=== PATIENT | female | born 1965 | race Caucasian/White ===

== ENCOUNTER 2024-05-22 00:10 | Emergency (ER) | payer BC, SELFPAY ==
[2024-05-22 00:54] VITALS: BP 177/108; PULSE 89; RESP 16; TEMP 36.8; O2SAT 97
--- NOTE | 2024-05-22 01:11 | ED.GENADULT ---
HPI - General Adult General Chief complaint: Fall/Minor Trauma Stated complaint: fall, head lac Time Seen by Provider: 05/22/24 00:19 History of Present Illness HPI narrative: about 1 hour ago was walking down the steps and tried to swat at a fly causing her to fall, she hit the back of her head and lower back. no LOC, no blood thinners. reports back pain 2/10 and a lac in the back of head, bleeding has stopped. 58-year-old woman presenting to the emergency department after slipping or falling back on some stairs while trying to swat at a fly. She did strike the back of her head. There was no loss of consciousness. She is not nauseated, has not been vomiting. She is not anticoagulated. Mild pain in the back of her head. Managed to control the bleeding. She is also having some pain she says at the top of her coccyx but able to ambulate. Thought she should be evaluated; checked out. This occurred about an hour prior to arrival in the emergency department. Related Data Home Medications ?Medication ?Instructions ?Recorded ?Confirmed hydrochlorothiazide 25 mg tablet 25 mg PO DAILY 05/22/24 05/22/24 Allergies Allergy/AdvReac Type Severity Reaction Status Date / Time lamolin Allergy Uncoded 05/22/24 01:01 Review of Systems Status of ROS: Reports: 6 or more systems reviewed and unremarkable except as noted in History and below [facility] Social History Smoking Status: Never smoker Do you use any of these nicotine containing products: None Second hand tobacco smoke exposure: No How often do you have a drink containing alcohol: monthly or less AUDIT-C Alcohol total score: 1 Non-prescribed substance use: denies use Exam Narrative: Exam Narrative: Very pleasant. Good energy. Transitioning without notable difficulty. Cranial nerves 2-12 intact. She is moving all extremities without difficulty. Good strength. Pupils are equal and briskly reactive. No fluid at external ear canals. Neck is supple nontender. Back nontender. If there is some soreness to palpation at the base of the sacrum/initiation of coccyx. Not terribly tender here. I do not see associated swelling. Examining scalp further -- at the upper central occiput, there is light blood and subtle break in tissue/laceration over a cm length. Fingertip sized defect in the subcutaneous tissue is more palpable. oozes a little blood with manipulation. No apparent bony defect. Const: Vital Signs, click to edit/add: Vital Signs - 24 hr 05/22/24 00:54 Temperature 98.3 F Pulse Rate [Pulse Oximeter] 89 Respiratory Rate 16 Blood Pressure [Ri ght Upper Arm] 177/108 H Pulse Oximetry 97 Oxygen Delivery Me thod Room Air Documenting provider has reviewed patient's vital signs: yes Course Vital Signs Vital signs: Initial Vital Signs Temperature 98.3 F 05/22/24 00:54 Temperature Source Temporal Artery Scan 05/22/24 00:54 Pulse Rate 89 05/22/24 00:54 Respiratory Rate 16 05/22/24 00:54 Blood Pressure 177/108 H 05/22/24 00:54 Blood Pressure Mean 131 H 05/22/24 00:54 Blood Pressure Position Supine 05/22/24 00:54 Pulse Oximetry 97 05/22/24 00:54 Oxygen Delivery Method Room Air 05/22/24 00:54 Vital Signs Temperature 98.3 F 05/22/24 00:54 Pulse Rate 89 05/22/24 00:54 Respiratory Rate 16 05/22/24 00:54 Blood Pressure 177/108 H 05/22/24 00:54 Pulse Oximetry 97 05/22/24 00:54 Oxygen Delivery Method Room Air 05/22/24 00:54 Temperature 98.3 F 05/22/24 00:54 Pulse Rate 89 05/22/24 00:54 Respiratory Rate 16 05/22/24 00:54 Blood Pressure 177/108 H 05/22/24 00:54 Pulse Oximetry 97 05/22/24 00:54 Oxygen Delivery Method Room Air 05/22/24 00:54 Medical Decision Making MDM Narrative Medical decision making narrative: Generally well. I think unlikely that has significant head injury. Would not recommend imaging. No notable neck injury either. We did discuss repairing this is a scalp laceration. She does have long hair and might be amenable simply to a temporary hair tie. Other area of injury in the sacrum/coccygeal area, I think is more likely a contusion than any fracture. Scalp wound had already been cleaned. Aided by Ms. Suarez, I bring together some strands of hair in a not. This does result in very good wound approximation and I think control of bleeding. Dermabond placed to hold type. Appears to be holding well. See patient discharge plan for further discussion Medical Records Medical records reviewed: Yes I reviewed the patient's medical records Discharge Plan Discharge Clinical Impression: Closed head injury, Contusion of sacrum Patient Disposition: Home, Self-Care Condition: Improved Additional Instructions: I would ice your low back/sacrum/coccygeal area 2 - 3 times daily over the next few days. This knot I'm hoping will hold long enough to allow the skin to heal. I presume it should heal pretty well if it can stay in place for least 3 days. I would not soak your head other than maybe a quick wash over the next 5 days. Watch for marked increase in headache, discoordination, repeated vomiting, unusual somnolence. Signs or symptoms of a concussion might be nausea or headache upon exertion which can also be an indication to back off that level of activity and reassess in a week.? Concussion can also be represented by smoldering nausea or smoldering headache, difficulty with concentration, mood lability, general somnolence, sense of persistent fog or dizziness/lightheadedness.? If these symptoms are becoming apparent and continuing beyond 7-10 days, be re-evaluated for further recommendations. Do consider that vacuum silver cleaner option Prescriptions: No Action hydrochlorothiazide 25 mg tablet 25 mg PO DAILY Follow Up/Referrals: Sarah Webster MD [Staff Physician] - Stand Alone Forms: [employer] Info Instructions
--- OUTSIDE RECORDS SUMMARY | 2024-05-22 01:37 | XMS_ITS | Data Portability ---
Author Organization [place] - .[facility], [facility] Address [address] [place] [address] Assessment No assessment recorded. Plan of Treatment Reminders Order Date Submit Date Provider Last Modified By Organization Details Last Modified Time Details Appointments None recorded. Lab culture, urine 2022 023 [facility], [address] [place] [address], [address], 16:06:15 urinalysis , dipstick 2022 023 [email or web address], [address] [place], [address], 16:03:18 Referral None recorded. Procedures None recorded. Surgeries None recorded. Imaging None recorded. Medication Orders Macrobid 100 mg capsule 2022 023 [id number], [address] [place], [address], 20:15:48 Macrobid 100 mg capsule 2022 023 [facility]armacy #[id number], [address] [place], [address], 16:19:47 Patient TargetsNo targets recorded. Patient Instructions Encounter Date Encounter Id Patient Instructions Last Modified By Organization Details Last Modified Time 03/18/2023 [id number] A healthy lifestyle: care instructions [email or web address] Not available 03/18/2023 16:00:55 Thank you for visiting [facility]. We may be calling you to review your lab results or schedule a follow up appointment. The call will be through an automated system which asks you to press a lozada to speak with one of our agents. Please be on the lookout for this call and listen to the message in its entirety. You may also view your lab results using the FaceRig sanjay, available in the Sanjay Store and [employer] Play. First-time sanjay users will need to create an account; please note you? ll need to select a login and password for the sanjay versus just using your patient portal login. Your lab results will be posted to the FaceRig sanjay as soon as they? re available. If you have any questions regarding your visit, our Aftercare department can be reached at [phone]. Our hours are Thursday ? Thursday from 8 am ? 11 pm or Thursday/Thursday from 9a ? 8p. UTI in Women Your Care Instructions A urinary tract infection, or UTI, is a general term for an infection anywhere between the kidneys and the urethra (where urine comes out). Most UTIs are bladder infections. They often cause pain or burning when you urinate. UTIs are caused by bacteria and can be cured with antibiotics. Be sure to complete your treatment so that the infection goes away. Follow-up care is a lozada part of your treatment and safety. Be sure to make and go to all appointments, and call your doctor if you are having problems. It's also a good idea to know your test results and keep a list of the medicines you take. How can you care for yourself at home? Take your antibiotics as directed. Do not stop taking them just because you feel better. You need to take the full course of antibiotics. Drink extra water and other fluids for the next day or two. This may help wash out the bacteria that are causing the infection. (If you have kidney, heart, or liver disease and have to limit fluids, talk with your doctor before you increase your fluid intake.) Avoid drinks that are carbonated or have caffeine. They can irritate the bladder. Urinate often. Try to empty your bladder each time. To relieve pain, take a hot bath or lay a heating pad set on low over your lower belly or genital area. Never go to sleep with a heating pad in place. To prevent UTIs Drink plenty of water each day. This helps you urinate often, which clears bacteria from your system. (If you have kidney, heart, or liver disease and have to limit fluids, talk with your doctor before you increase your fluid intake.) Urinate when you need to. Urinate right after you have sex. Change sanitary pads often. Avoid douches, bubble baths, feminine hygiene sprays, and other feminine hygiene products that have deodorants. After going to the bathroom, wipe from front to back. When should you call for help? Call your doctor now or seek immediate medical care if: Symptoms such as fever, chills, nausea, or vomiting get worse or appear for the first time. You have new pain in your back just below your rib cage. This is called flank pain. There is new blood or pus in your urine. You have any problems with your antibiotic medicine. Watch closely for changes in your health, and be sure to contact your doctor if: You are not getting better after taking an antibiotic for 2 days. Your symptoms go away but then come back. [email or web address] Not available 03/18/2023 16:03:32 Reason for Referral None Reported. Results Created Date Observation Date Name Description Value Unit Range Abnormal Flag Note LastModifiedBy Organization Detail LastModifiedTime 03/18/2003/18/2023 CULTU RE URINE results Attac hment Not Available [facility] [address] [place], [address], 03/20/2023 16:06:15 03/18/20 23 03/20/2023 CULTU RE URINE final MICROB IOLOGY RESULT S Cultu re Urine Final Sourc e: Repor t Date/ Time: 03/20 4:05P M Colle ction Date/ Time: 03/18 4:19P M 1630 Clini heber Infor matio n Type of Patie nt Non-P regna nt Femal e Sourc e of urine cultu re VOIDE D/MARYANN AN CATCH Penic illin Aller gy? N Cultu re Obser vatio n No growt h. Not Available [facility] [address], [place], [address], 03/20/2023 16:06:15 03/18/20 23 03/18/2023 urina lysis , dipst ick Unknown Analyte Neg Not Available [facility] [place] [id number] [place], [address], 03/18/2023 15:55:33 03/18/20 23 03/18/2023 urina lysis , dipst ick Unknown Analyte Norm Not Available [facility] [address], [address], 03/18/2023 15:55:33 03/18/20 23 03/18/2023 urina lysis , dipst ick Unknown Analyte Neg Not Available [facility] [address], [address], 03/18/2023 15:55:33 03/18/20 23 03/18/2023 urina lysis , dipst ick Unknown Analyte Neg Not Available [facility] [address], [address], 03/18/2023 15:55:33 03/18/20 23 03/18/2023 urina lysis , dipst ick Unknown Analyte negati ve Not Available [facility], [address], 03/18/2023 15:55:33 03/18/20 23 03/18/2023 urina lysis , dipst ick Unknown Analyte Neg Not Available [facility] [address], [address], 03/18/2023 15:55:33 03/18/20 23 03/18/2023 urina lysis , dipst ick Unknown Analyte Neg Not Available [facility] [address], [address], 03/18/2023 15:55:33 03/18/20 23 03/18/2023 urina lysis , dipst ick Unknown Analyte 5 Not Available [facility] [address], [address], 03/18/2023 15:55:33 03/18/20 23 03/18/2023 urina lysis , dipst ick Unknown Analyte 1.010 Not Available [address] [place], [address], 03/18/2023 15:55:33 03/18/20 23 03/18/2023 urina lysis , dipst ick Unknown Analyte 500 Not Available [id number] [place], [address], 03/18/2023 15:55:33 Result Notes None recorded. Problems No Known Problems Medical Equipment None Reported. Allergies No known drug allergies Medications Name Sig Start Date Stop Date Status Note LastModified by Organization Details LastModified Time Macrobid 100 mg capsule Take 1 capsule now in office- for 1 day 2022 active Not Available Not Available Not Avai lable tamoxifen active Not Available Not Inna ilable Not Available hydrochlorothia zide active Not Available Not Available Not Available Vitals Date Recorded Respiratory rate Provider Name a nd Address Organization Details Last Updated DateTime 03/18/2023 16 /min Mark IFELD - .[facility] 03/18/2023 15:50:34 Date Recorded Oxygen saturation Oxygen saturation in Arterial blood by Pulse oximetry Heart rate Body temperature Systolic blood pressure Diastolic blood pressure Provider Name and Address Organization Details Last Updated DateTime 3 98 % 98 % 80 /min 97.4 [degF] 121 mm[Hg] 82 mm[Hg] Ebony FIELD - .[facility] 3 16:02:26 Social History None recorded. Functional Status None recorded. Mental Status None recorded. Family History Nothing Reported. Medical History No medical history recorded. Gynecological HistoryNo gynecological history recorded. Obstetrics History GPAL:G 0 P 0 0 0 0 Past Encounters Encounter ID Performer Location Encounter Start Date Encounter Closed Date Diagnosis/Indication Diagnosis SNOMED-CT Code Diagnosis ICD10 Code [id number] Dalton Kowalski DO [facility] t [address] [place] [address] 1 03/18/2023 15:45:36 03/18/2023 16:01:30 Dysuria 38908028 R30.0 Acute urin myrtle tract infection 574969984 N39.0 Health Concerns Section Related Observation LastModified by Organization Detai ls LastModified Time None Recorded Concern Status LastModified by Organization Details LastModified Time None Recorded Advance Directives Directive None Recorded Payers Encounter Date Sequence Insurance Name Policy Number Policy Garcia Covered Member ID Garcia Member ID Guarantor Name 03/18/2023 1 [place] [facility] [place] [place] [id number] Elizabeth Suarez [id number] Elizabeth Suarez Notes Date Note Type Note Provider Name and Address Organization Details Recorded Time 03/18/2023 text/html HPI Notes: Dysur ia - cmd Reported by patient. Patient presents with: Dysuria which began 2-3 days ago Pertinent findings: No urinary urgency; No hematuria; No history of recurrent UTI; No fever; No chills; No nausea; No vomiting; No abdominal pain; No back pain; No dizziness; No lightheadedness; No genital pain; No genital discharge; No recent potential STD exposure; (+) urinary frequency Menstrual history: not menstruating The pt is a 57 year old female who presents with dysuria and urinary frequency which began two days ago. Pt denies fever, abdominal pain, vaginal discharge, nausea/vomiting, hematuria, or flank pain [address], [place], [address], [place] - .[facility] 03/18/2023 16:15:56 OBGyn Episode No OBEpisode recorded.
--- OUTSIDE RECORDS SUMMARY | 2024-05-22 01:37 | XMS_ITS | Clinical Summary ---
Author Organization [email or web address] Address [place], [place] [address] Care Team Providers Care Lining Maker Hand Name Role Phone Inga Crowley MD Primary Care Provide r Allergies Active Allergy Reactions Criticality Noted Date Comments Lanolin (Wool Alcohols) Itching 09/17/2009 Wool Itching Medium 08/20/2012 Medications Medication Sig Dispensed Refills Start Date End Date Status TURMERIC ORAL Take 1,500 mg by mouth once daily. Active metroNIDAZOLE (METROGEL) 0.75 % gelIndications:Acne rosacea Apply topically to affected area(s) two times daily. 45 g 3 10/28/2022 Active exemestane (AROMASIN) 25 mg tablet Take 25 mg by mouth once daily after a meal. Active Restasis MultiDose 0.05 % drop Place 1 Drop into both eyes two times daily. 10/12/2023 Active hydroCHLOROthiazide (HCTZ) 25 mg tabletIndications:H TN (hypertension) Take 1 Tablet (25 mg) by mouth once daily. 100 Tablet 3 10/29/2023 Active Active Problems Problem Noted Date Diagnosed Date Pap smear for cervical cancer screening 12/28/19 Overview (03/17/2022): Plan: Pap/HPV due 12/2026 Atypical ductal hyperplasia of right breast 11/2020 Psoriasis 10/18/2020 HTN (hypertension) 10/18/2020 History of anemia 10/18/2020 Immunizations Name Administration Dates Next Due COVID-19 VACCINE SPIKEVAX (M ODERNA 50MCG/0.5ML) 12YO+ PFS 10/29/2023 COVID-19 vaccine (Moderna 100mcg/0.5mL) PF, MDV 08/05/2021 COVID-19 vaccine (MyRepublic NTech 30mcg/0.3mL) 12YO+ BIVALENT PF, MDV 06/02/2022 COVID-19 vaccine (MyRepublic NTech 30mcg/0.3mL) PF, MDV 11/20/2020,10/30/2020 Hepatitis A (Adult) 06/14/2014,10/13/2013 Hepatitis B (Adult) 10/13/2013,12/06/1991,1991 Influenza A (H1N1), Inactivated 07/17/2009 Influenza Virus, Unspecified 05/29/2018,05/13/20 11,05/17/2010 Influenza, IIV3 (Age 6-35 mos) 08/26/2012 Influenza, IIV4 05/21/2023, 2,06/29/2020,2017,06/06/2014,05/23/2013 Influenza, IIV4 (=>6mos) MDV 06/16/2019,05/26/20 16 Influenza,LAIV3 Live Intrana roshni (Flumist) 05/13/2011,05/17/2010 Influenza,LAIV4 Live Intrana roshni (Flumist) 06/06/2014,05/23/2013 Tdap 10/28/2022,09/26/2011,01/15/2010 Typhoid (injectable) 10/13/2013 Yellow Fever 10/13/2013 Zoster (Shingrix-RZV, recombinant) 07/04/2020,,06/16/2019 Family History Medical History Relation Name Comments Stroke Father Dementia Mother Hyperlipidemia Mother Parkinsonism Mother Relation Name Status Comments Father Mother Social History Tobacco Use Types Packs/Day Years Used Date Smoking Tobacco: Never Smokeless Tobacco: Never Tobacco Cessation:Counseling Given: Yes Alcohol Use Standard Drinks/Week Comments Yes 1 (1 standard drink = 0.6 oz pur e alcohol) once a month PHQ-2 Answer Date Recorded PHQ-2 TOTAL SCORE 0 10/29/2023 Social Connections Answer Date Recorded Frequency of Communication with Friends and Fami ly Not on file 08/17/2021 Financial Resource Strain Answer Date R ecorded Difficulty of Paying Living Expenses Not on file 08/17/2021 Difficulty of Paying Living Expenses Not on file 08/17/2021 Sex and Gender Information Value Date Recorded Sex Assigned at Not on file Gender Identity Not on file Sexual Orientation Not on file Obstetrics History Last Filed Vital Signs Vital Sign Reading Time Taken Comments Blood Pressure 118/84 10/29/2023 7:40 AM CDT Pulse 78 10/29/2023 7:40 AM CDT Temperature 36.6 ??C (97.8 ??F) 02/09/2023 8:49 AM CD T Respiratory Rate - - Oxygen Saturation 97% 10/29/2023 7:40 AM CDT Inhaled Oxygen Concentration - - Weight 62.6 kg (138 lb) 10/29/2023 7:40 AM CDT Height 163.8 cm (5' 4.5) 10/29/2023 7:40 AM CDT Body Mass Index 23.32 10/29/2023 7:40 AM CDT Plan of Treatment Health Maintenance Due Date Last Done Comments Mammogram for age 45-75 07/06/2020 07/06/2019, 07/11 COVID-19 vaccine series ( season) 2024 10/29/2023, 06/02/2022, 08/05/2021, Additional history exists Influenza for age 50-64 04/17/2024 05/21/20 23, 06/04/2022, 06/29/2020, Additional history exists BMI (ht and wt on same day) for age 18+ 10/28/2024 10/29/2023, 10/28/2022, 02/08/2021, Additional history exists Depression screening for age 12+ 10/28/2024 10/29/2023, 12/27/2021 Fecal testing sDNA-FIT (Cologuard) for age 45-75 01/16/2025 01/16/2022 Pap test for age 21-65 12/27/2026 , 12/27/2021, 09/22/2018, Additional history exists Lipids for age 45-75 10/28/2028 10/29/2023, 01/04/20 22 Tetanus booster 10/28/2032 10/28/2022, 09/17, 01/15/2010 Zoster (shingles) series for age 50+ Completed 07/04/2020, 07/04/2019, 06/16/2019 HIV for age 15-65 Completed 10/28/2022 Hepatitis C screening for age 18-79 Completed 10/28/2022 Tdap Completed 10/28/2022, 09/17, 01/15/2010 Pneumococcal series for age 6-64 Aged Out No longer eligible based on patient's age to complete this topic Procedures Procedure Name Priority Date/Time Associated Diagnosis Comments LIPID PANEL W REFLEX MEASURED LDL Routine 10/29/2023 8:27 AM CDT Lipid screening LC HIV-1/O/2, 4TH GENERATION Routine 10/28/2022 2:18 PM CDT Screening for HIV (human immunodeficiency virus) LC HCV ANTIBODY RFX TO QUANT PCR Routine 10/28/2022 2:18 PM CDT Encounter for hepatitis C screening test for low risk patient SCAN-FECAL TEST DNA (COLOGUARD) 01/16/2022 12:00 AM CDT HPV HIGH RISK Routine 12/27/2021 10:00 AM CDT Screening for cervical cancer SCAN-MAMMOGRAPHY REPORT 07/06/2019 12:00 AM EMPLOYMENT TRAINING SPECIALIST from Last 3 Months or Most Recently Relevant to Health Maintenance Results * (ABNORMAL) LIPID PANEL W REFLEX MEASURED LDL (10/29/2023 8:27 AM CDT) CHOLESTEROL,TOTAL 234(H) 100 - 199 mg/dL 10/29/2023 5:43 PM CDT [facility] Comment: Cholesterol, Total Reference Ranges Desirable <200 mg/dL Borderline 200-239 mg/dL High >=240 mg/dL TRIGLYCERIDES 78 <150 mg/dL 10/29/2023 5:43 PM CDT [facility] HDL CHOLESTEROL 101 >40 mg/dL 4 5:43 PM CDT [facility] NON-HDL CHOLESTEROL 133 <145 mg/dl 10/29/2023 5:43 PM CDT [facility] CHOL/HDL RATIO 2.32 <4.50 10/29/2023 5:43 PM CDT [facility] LDL CHOLESTEROL 117 <=130 mg/dL 10/29/2023 5:43 PM CDT [facility] VLDL CHOLESTEROL 16 <=30 mg/dL 10/29/2023 5:43 PM CDT [facility] PROVIDER ORDERED STATUS RANDOM 10/29/2023 5:43 PM CDT [facility] Blood BLOOD SPECIMEN / Unknown Venipuncture / Unknown 10/29/2023 8:27 AM CDT 10/29/2023 8:29 AM CDT Inga Crowley MD CHEMISTRY Performing Organization Address City/[facility]/ZIP Co de Phone Number [facility] [address] [place] [id number], [place] * LC HCV ANTIBODY RFX TO QUANT PCR (10/28/2022 2:18 PM CDT) Pathologist [facility] HCV Ab Non Reactive Non Reactive 10/30/2022 2:[address] [facility] ([facility]) Blood BLOOD SPECIMEN / Unknown Venipuncture / Unknown 10/28/2022 2:18 PM CDT 10/28/2022 2:21 PM CDT Narrative [facility] ([facility]) - 10/30/2022 2:08 PM CDT Performed at: ??01 - [address] ??[id number] Automotive Technology Instructor: Juanito Ladd MD, Phone: ??[phone] Inga Crowley MD LABORATORY [facility] ([facility]) [address] [place] [id number], [place] * LC HIV-1/O/2, 4TH GENERATION (10/28/2022 2:18 PM CDT) HIV Scr 4th Gen Non Reactive Non Reactive 10/30/2022 2:[address] [facility] ([facility]) Comment: HIV Negative HIV-1/HIV-2 antibodies and HIV-1 p24 antigen were NOT detected. There is no laboratory evidence of HIV infection. Blood BLOOD SPECIMEN / Unknown Venipuncture / Unknown 10/28/2022 2:18 PM CDT 10/28/2022 2:21 PM CDT Narrative [facility] ([facility]) - 10/30/2022 2:08 PM CDT Performed at: ??01 - [facility] [place] [address] ??[id number] Automotive Technology Instructor: Juanito Ladd MD, Phone: ??[phone] Inga Crowley MD LABORATORY [facility] ([facility]) [address] [place] [address] * SCAN-FECAL TEST DNA (COLOGUARD) (01/16/2022 12:00 AM CDT) Scanner OTHER * HPV HIGH RISK (12/27/2021 10:00 AM CDT) TYPE 16 Negative Negative 12/31/2021 2:54 PM CDT [facility] TYPE 18 Negative Negative 12/31/2021 2:54 PM CDT [facility] OTHER HIGH RISK TYPES Negative Negative 12/31/2021 2:54 PM CDT [facility] Other (Cervical) Non-Blood / Unknown 12/27/2021 10:00 AM CDT 12/30/2021 8:59 AM CDT [facility] 12/31/2021 2:54 PM CDT HPV types 16, 18, 31, 33, 35, 39, 45, 51, 52, 56, 58, 59, 66 and 68 DNA were undetectable or below the pre-set threshold. Methodology: [employer] 4800 HPV Test Inga Crowley MD [facility] [address] [place] [address], * SCAN-MAMMOGRAPHY REPORT (07/06/2019 12:00 AM EMPLOYMENT TRAINING SPECIALIST) Anatomical Region Laterality Modality Other Scanner OTHER from Last 3 Months or Most Recently Relevant to Health Maintenance Care Teams Lining Maker Hand Relationship Specialty Start Date End Date Inga Crowley MD [address] [place] [address] PCP - General Family Practice 10/18/20
== END 2024-05-22 01:47 | disposition home or self-care (01) ==
PROVIDERS: Emergency Provider Family Medicine; PCP Family Medicine
DX: S09.90XA Unspecified injury of head, initial encounter (principal); S01.01XA Laceration without foreign body of scalp, initial encounter; S30.0XXA Contusion of lower back and pelvis, initial encounter; W10.9XXA Fall (on) (from) unspecified stairs and steps, initial encounter
CPT/HCPCS: 12001; 99282; 99284